=== PATIENT | male | born 1975 | race Two or more races ===

== ENCOUNTER 2020-03-20 13:16 | Emergency (ER) | payer OTHER ==
[~2020-03-20] VITALS: Ht 170.2 cm; Wt 69.4 kg
[2020-03-20 13:32] VITALS: BP 127/75
== END 2020-03-20 15:04 | disposition home or self-care (01) ==
LOC: ER 13:27
DX: L98.499 Non-pressure chronic ulcer of skin of other sites with unspecified severity (principal); L03.114 Cellulitis of left upper limb; Z59.0 Homelessness